=== PATIENT | female | born 1990 | race Caucasian/White ===

== ENCOUNTER → 2019-04-25 | Outpatient (CLI) | payer OTHER ==
[2019-04-25 15:12] LABS: ALANINE AMINOTRANSFERASE 18 U/L (9-52); ALBUMIN 4.5 gm/dL (3.5-5.0); ALKALINE PHOSPHATASE 47 U/L (50-136); AST,SGOT 26 U/L (15-37); TOTAL PROTEIN 8.1 gm/dL (6.4-8.2)
[2019-04-25 15:44] LABS: THYROID STIMULATING HORMONE < 0.015 uIU/mL (0.465-4.680)
[2019-04-25 16:05] LABS: BILIRUBIN UNCONJUGATED 0.6 mg/dL (0.0-1.1); BILIRUBIN,TOTAL 0.7 mg/dL (0.0-1.0)
== END ==
LOC: COL.LAB 14:34 → EDBD 14:34
PROVIDERS: Internal Medicine Endocrinology, Diabetes & Metabolism
DX: E05.00 Thyrotoxicosis with diffuse goiter without thyrotoxic crisis or storm (principal)